=== PATIENT | female | born 1995 | race American Indian/Alaskan Native ===

== ENCOUNTER 2018-02-26 21:38 | Inpatient (IN) | payer BC ==
[2018-02-26 22:20] VITALS: BMI 28.8
--- NOTE | 2018-02-26 23:08 | ED PDOC ---
Arrival/HPI <Kyaw Conte - Last Filed: 02/26/18 23:46> - General Historian: Patient - History of Present Illness Narrative History of Present Illness (Text): 02/26/18 23:01 23yo female with history of depression who present to ED with complaint of suicidal attempt. States she has been depressed for a while. Her PMD gave her antidepressant, but she stopped taking it because it made her more suicidal. States she attempted to commit suicide today, by hanging her self but the rope broke. States she came to the ED herself to seek help. Admits using Marijuana 2days ago. Denies any somatic complaint. Denies HI and hallucination. <Mark Sharma A - Last Filed: 02/27/18 01:47> - General Chief Complaint: Psychiatric Evaluation Time Seen by Provider: 02/26/18 22:11 Past Medical History - Provider Review Nursing Documentation Reviewed: Yes - Past History Past History: No Previous - Infectious Disease Hx of Infectious Diseases: None - Tetanus Immunization Tetanus Immunization: Unknown - Cardiac Hx Cardiac Disorders: No - Pulmonary Hx Respiratory Disorders: No - Neurological Hx Neurological Disorder: No - HEENT Hx HEENT Disorder: No - Renal Hx Renal Disorder: No - Endocrine/Metabolic Hx Endocrine Disorders: No - Hematological/Oncological Hx Blood Disorders: No - Integumentary Hx Dermatological Disorder: No - Musculoskeletal/Rheumatological Hx Musculoskeletal Disorders: No - Gastrointestinal Hx Gastrointestinal Disorders: No - Genitourinary/Gynecological Hx Sexually Transmitted Diseases: Yes (genital herpes) - Psychiatric Hx Psychophysiologic Disorder: Yes Hx Anxiety: Yes Hx Bipolar Disorder: No Hx Depression: No Hx Emotional Abuse: No Hx Hallucinations: No Hx Panic Disorder: No Hx Post Traumatic Stress Disorder: No Hx Psychosis: No Hx Physical Abuse: No Hx Schizophrenia: No Hx Sexual Abuse: No Hx Substance Use: Yes (marijuana) - Past Surgical History Past Surgical History: Unable to Obtain - Anesthesia Hx Anesthesia: No Hx Anesthesia Reactions: No Hx Malignant Hyperthermia: No - Suicidal Assessment Feels Threatened In Home Enviroment: No <Mark Sharma A - Last Filed: 02/27/18 01:47> Family/Social History - Physician Review Nursing Documentation Reviewed: Yes Family/Social History: Unknown Family HX Smoking Status: Former Smoker Hx Alcohol Use: Yes Hx Substance Use: Yes (marijuana) Substance used: weed i week ago Hx Substance Use Treatment: No <Mark Sharma A - Last Filed: 02/27/18 01:47> Allergies/Home Meds <InésKyaw - Last Filed: 02/26/18 23:46> <Mark Sharma A - Last Filed: 02/27/18 01:47> Allergies/Adverse Reactions: Allergies No Known Allergies Allergy (Verified 02/26/18 22:18) Home Medications: Home Meds Medication Instructions Recorded Confirmed No Known Home Med 02/26/18 02/26/18 Review of Systems - Physician Review All systems were reviewed & negative as marked: Yes - Review of Systems Constitutional: Normal Eyes: Normal ENT: Normal Respiratory: Normal Cardiovascular: Normal Gastrointestinal: Normal Genitourinary Female: Normal Musculoskeletal: Normal Skin: Normal Neurological: Normal Endocrine: Normal Hemo/Lymphatic: Normal Psychiatric: Suicidal Ideation <Mark Sharma A - Last Filed: 02/27/18 01:47> Physical Exam Vital Signs Reviewed: Yes Temperature: Afebrile Blood Pressure: Normal Pulse: Regular Respiratory Rate: Normal Appearance: Positive for: Well-Appearing, Non-Toxic, Comfortable Pain Distress: None Mental Status: Positive for: Alert and Oriented X 3 - Systems Exam Head: Present: Atraumatic, Normocephalic Pupils: Present: PERRL Extroacular Muscles: Present: EOMI Conjunctiva: Present: Normal Mouth: Present: Moist Mucous Membranes Neck: Present: Normal Range of Motion Respiratory/Chest: Present: Clear to Auscultation, Good Air Exchange. No: Respiratory Distress, Accessory Muscle Use Cardiovascular: Present: Regular Rate and Rhythm, Normal S1, S2. No: Murmurs Abdomen: No: Tenderness, Distention, Peritoneal Signs Back: Present: Normal Inspection Upper Extremity: Present: Normal Inspection. No: Cyanosis, Edema Lower Extremity: Present: Normal Inspection. No: Edema Neurological: Present: GCS=15, CN II-XII Intact, Speech Normal Skin: Present: Warm, Dry, Normal Color. No: Rashes Psychiatric: Present: Alert, Oriented x 3, Normal Insight, Normal Concentration <Mark Sharma A - Last Filed: 02/27/18 01:47> Medical Decision Making - Lab Interpretations Lab Results: 02/26/18 22:57 02/26/18 22:57 Lab Results 02/26/18 22:57: Alcohol, Quantitative < 10 02/26/18 22:57: Salicylates < 1 L, Acetaminophen < 10.0 L 02/26/18 22:57: Sodium 139, Potassium 3.8, Chloride 106, Carbon Dioxide 26, Anion Gap 11, BUN 13, Creatinine 0.8, Est GFR ( Amer) > 60, Est GFR (Non- Af Amer) > 60, Random Glucose 87, Calcium 9.1, Magnesium 1.9, Total Bilirubin 0.2, AST 44 H, ALT 31, Alkaline Phosphatase 43, Total Protein 7.0, Albumin 4.2, Globulin 2.8, Albumin/Globulin Ratio 1.5 02/26/18 22:57: WBC 5.4 D, RBC 3.60, Hgb 11.5 L, Hct 34.0 L, MCV 94.4, MCH 31.9, MCHC 33.8, RDW 12.9, Plt Count 254, MPV 10.1, Gran % 59.2, Lymph % (Auto) 24.9, [place] % (Auto) 14.0 H, Eos % (Auto) 1.3 L, Baso % (Auto) 0.6, Gran # 3.17, Lymph # (Auto) 1.3, [place] # (Auto) 0.8 H, Eos # (Auto) 0.1, Baso # (Auto) 0.03 - RAD Interpretation Radiology Orders: 02/26/18 22:25 CHEST PORTABLE [RAD] Stat <Kyaw Conte - Last Filed: 02/26/18 23:46> ED Course and Treatment: 02/27/18 01:43 PT presented for stated history. Her lab was reviewed and unremarkable. UDS +THC. she was medically cleared for psychiatric evaluation CXR NAD Pt was seen in ED by CASSANDRA Cast. He DC with the psychiatrist and pt will be admitted to Dr. De La Cruz for MDD. - RAD Interpretation Radiology Orders: 02/26/18 22:25 CHEST PORTABLE [RAD] Stat <Mark Sharma - Last Filed: 02/27/18 01:47> - PA / AUTOMOBILE REPAIR SERVICE ESTIMATOR / Resident Statement SOPHIA has reviewed & agrees with the documentation as recorded. SOPHIA has examined the patient and agrees with the treatment plan. <Kyaw Conte - Last Filed: 02/26/18 23:46> Disposition/Present on Arrival <Kyaw Conte Last Filed: 02/26/18 23:46> - Present on Arrival Any Indicators Present on Arrival: No History of DVT/PE: No History of Uncontrolled Diabetes: No Urinary Catheter: No History of Decub. Ulcer: No History Surgical Site Infection Following: None - Disposition Have Diagnosis and Disposition been Completed?: Yes Disposition Time: 01:40 Patient Plan: Admission <Mark Sharma - Last Filed: 02/27/18 01:47> - Disposition Diagnosis: Major depressive disorder Disposition: HOSPITALIZED Patient Problems: Current Active Problems Problem Status Onset Major depressive disorder Acute Condition: STABLE Forms: [email or web address] (Sinhala)
[2018-02-26 23:25] LABS: BASO # 0.03 K/mm3 (0.0-2.0); BASO % 0.6 % (0.0-3.0); EOS # 0.1 (0.0-0.7); EOS % 1.3 % (1.5-5.0); GRAN # 3.17 (1.4-6.5); GRAN % 59.2 % (50.0-68.0); HEMOGLOBIN 11.5 g/dL (12.0-16.0); LYMPH # 1.3 (1.2-3.4); LYMPH % 24.9 % (22.0-35.0); MEAN CELL VOLUME 94.4 fl (80.0-105.0); MEAN CORPUSCULAR HEMOGLOBIN 31.9 pg (25.0-35.0); MEAN CORPUSCULAR HGB CONC 33.8 g/dl (31.0-37.0); MEAN PLATELET VOLUME 10.1 fl (7.0-11.0); MONO # 0.8 (0.1-0.6); RBC 3.6 10^6/uL (3.5-6.1); RED CELL DISTRIBUTION WIDTH 12.9 % (11.5-14.5); WHITE BLOOD COUNT 5.4 10^3/ul (4.5-11.0)
[2018-02-26 23:30] LABS: ACETAMINOPHEN < 10.0 ug/ml (10.0-20.0); SALICYLATE < 1 mg/dL (2.0-20.0)
[2018-02-26 23:31] LABS: ALB/GLOB RATIO 1.5 (1.1-1.8); ALBUMIN 4.2 g/dL (3.0-4.8); ALT/SGPT 31 U/L (7-56); AST/SGOT 44 U/L (14-36); BLOOD UREA NITROGEN 13 mg/dL (7-21); CALCIUM 9.1 mg/dL (8.4-10.5); GFR NON-AFRICAN AMERICAN > 60
[2018-02-26 23:48] LABS: PH,URINE 6.5 (4.7-8.0); URINE BILIRUBIN NEGATIVE (NEGATIVE); URINE BLOOD LARGE (NEGATIVE); URINE GLUCOSE (UA) NEGATIVE (NEGATIVE); URINE LEUKOCYTE ESTERASE NEGATIVE Leu/uL (NEGATIVE); URINE PROTEIN 30 mg/dL (<30 mg/dL); URINE UROBILINOGEN 0.2 E.U./dL (<1 E.U./dL)
[2018-02-26 23:56] LABS: URINE APPEARANCE SL CLOUDY (CLEAR); URINE COLOR YELLOW (YELLOW)
[2018-02-27 00:20] LABS: URINE BACTERIA OCC (NEG); URINE EPITHELIAL CELLS 0 - 2 /hpf (0-5); URINE WBC 0 - 2 /hpf (0-6)
[2018-02-27 00:32] LABS: BARBITURATES, UR NEGATIVE (NEGATIVE); BENZODIAZEPINES, UR NEGATIVE (NEGATIVE); OPIATES, UR NEGATIVE (NEGATIVE); PHENCYCLIDINE, UR NEGATIVE (NEGATIVE)
[2018-02-27 02:26] VITALS: O2SAT 100
[2018-02-27 04:39] VITALS: RESP 18
--- NOTE | 2018-02-27 05:22 | PCM.BM ---
<Danisha Hung - Last Filed: 02/27/18 05:19> Treatment Plan Problems - Problems identified on initial assessmt suicidal ideation Date Initiated: 02/27/18 Time Initiated: 05:00 Assessment reference: NA Status: Active ineffective coping Date Initiated: 02/27/18 Time Initiated: 05:00 Assessment reference: NA Status: Active <Dorothy Wright - Last Filed: 02/27/18 12:22> - Diagnosis (1) Major depressive disorder Status: Acute Interventions: 02/27/18 12:22 Psychoeducation Psychopharmacology/adjustment of medications as needed/ monitoring possible side effects Evaluate pt on daily basis Compliance with medications and follow up appointments Suicide and homicide risk assessment and prevention Relapse prevention Reduction of symptoms Improve functional status Family involvement As outpatient: cognitive behavioral therapy <Carol Palma - Last Filed: 02/28/18 16:13> Family Contact Family involvement: Family/SO is involved Family contact: Patient agrees to contact Family contact name: Sweta Schaeffer(sister) Family contacted how many times per week?: 2 <Nona Rucker - Last Filed: 02/28/18 16:51>
--- NOTE | 2018-02-27 10:33 | RAD ---
Date of service: 02/27/2018 HISTORY: admission COMPARISON: 04/01/2015 FINDINGS: LUNGS: No active pulmonary disease. PLEURA: No significant pleural effusion identified, no pneumothorax apparent. CARDIOVASCULAR: Normal. OSSEOUS STRUCTURES: No significant abnormalities. VISUALIZED UPPER ABDOMEN: Normal. OTHER FINDINGS: None. IMPRESSION: No active disease.
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
--- NOTE | 2018-02-28 01:09 | CON ---
DATE: 02/27/2018 REQUESTING PHYSICIAN: Dorothy Wright MD. CONSULTATION REASON: Medical management. HISTORY OF PRESENT ILLNESS: The patient's history is obtained through [facility], the patient's Psychiatry evaluation, ER evaluation and [facility] visits. The patient is a 23-year-old female which according to the patient's ER triage evaluation, the patient came to the emergency room ambulatory walk-in for psychiatric evaluation. The patient stated that she is feeling overwhelmed and having suicidal ideation. The patient attempted to hang herself, but the hook broke. REVIEW OF SYSTEMS: Thirteen-system review was positive for suicide attempts, suicidal ideation, depression, anxiety. The patient admits active alcohol use, marijuana use and smoking. The patient denies homicidal ideation. Denies auditory or visual hallucination. The patient admits to be anxious and depressed. CODE STATUS: Full code. LIVING WILL ADVANCE DIRECTIVE: None. ALLERGIES: NONE. HEIGHT: 5 feet 8. Weight is 180, height is 5 feet 8. The patient is a 23-year-old female. SOCIAL HISTORY: Positive for marijuana use. Positive for alcohol. Positive smoking. MENSTRUAL HISTORY: The patient denies being . The patient has history of genital herpes. PAST SURGICAL HISTORY: None. PAST MEDICAL, SURGICAL, PSYCHIATRIC, SOCIAL HISTORY: Positive for genital herpes, positive for anxiety, depression, positive for multiple emergency room evaluation for alcohol intoxication and fall and facial injuries. The patient had multiple ER visits since 2015 for above. Past medical history is also significant for alcohol intoxication, history of abdominal pain, history of unprotected sex. Past medical history is also significant for history of fall secondary to alcohol intoxication, history of poor compliance, history of questionable tension headache, history of facial and right jaw injury in 2016, history of mandibular joint area contusion, history of multiple ER visits in 2015 and 2016, history of poor compliance, history of suicidal ideation, history of being treated with antidepressant in the past, history of alcohol abuse, history of marijuana use. The patient is admitted to Psychiatry floor, room 515. FAMILY HISTORY: Positive for schizophrenia in sister. Positive for alcoholism in the father. The patient's father is an alcohol abuser and family history is positive for alcohol abuse. The patient's 13-system review as above. PHYSICAL EXAMINATION: VITAL SIGNS: T-max 98.2; pulse 78-81; blood pressure 148/70, 138/70; respirations 16-17; O2 sat 100%. GENERAL: The patient is a female. HEENT: Head examination normocephalic, atraumatic. HEENT examination shows pinkish pale conjunctivae. Anicteric sclerae. No nystagmus noted. No oropharyngeal lesion. No neck rigidity. CHEST: Clear to auscultation. No rales, crackles or wheezing. CARDIOVASCULAR: S1, S2. Regular rhythm. No audible murmur, gallop or rub. ABDOMEN: Soft. Positive bowel sound. No tenderness. No distention. No guarding. No rigidity. SPINE: Normal. EXTREMITIES: No pitting edema, no calf tenderness, no Homans' sign. No cyanosis. NEUROLOGIC: The patient has cranial nerves II through XII intact. Speech is within normal limit. SKIN: Warm and dry. PSYCHIATRIC: The patient is alert, awake, oriented x3. No deficits noted. The patient's affect is constricted. The patient's mood is depressed and anxious. DIAGNOSTICS: CBC shows a hemoglobin of 11.5 and hematocrit 34. Chemistry shows AST 44, urine protein 30, large blood, occasional bacteria. Salicylates negative. Opiates negative. Methadone negative. Acetaminophen negative. Urine drug screen positive for cannabinoids. Alcohol level negative. Chest x-ray was done in the emergency room. No active disease. The patient was seen and evaluated in the emergency room last night. The patient was then evaluated by the PES. The patient was admitted to Psychiatry for further management. IMPRESSION AND PLAN: 1. Suicidal ideation. 2. Possible suicidal attempt. 3. Possible major depression with adjustment disorder versus generalized anxiety disorder versus panic disorder. 4. Alcohol and marijuana and cannabinoids abuse and dependence. 5. Mild normocytic anemia. 6. Trace proteinuria, microscopic hematuria, bacteriuria. 7. Urine drug screen positive for marijuana. 8. History of alcohol and marijuana abuse. 9. Anxiety, depression, suicidal ideation. 10. History of genital herpes and sexually transmitted disease. 11. Questionable panic disorder. 12. Family history of alcohol abuse. 13. Family history of schizophrenia. Plan at this time, the patient is admitted to Psychiatry. The patient is started on Prozac 10 mg daily, Remeron 15 at bedtime p.r.n., Vistaril p.r.n. The patient is on Ativan 2 mg p.o. every 6 hours and Ativan 2 mg IM every 6 hours p.r.n., Geodon 20 mg p.o. or IM every 6 hours p.r.n., Prozac 10 mg daily, Remeron 15 mg at bedtime p.r.n., Vistaril 25 mg every 8 p.r.n. Regular diet ordered. In addition the patient has been ordered EKG and echo because the patient also gives history of palpitations. The patient's thyroid panel will be ordered. Holter monitor if feasible will be ordered. Thyroid panel, RPR, B12, folate, vitamin D 25-hydroxy, lipid panel, urine culture will be ordered. At present, the patient is to be continued on above therapeutic interventions. The patient's further management will be dependent upon the patient's clinical condition, hemodynamic status and as per the patient's response to therapeutic intervention, the patient's diagnostic test results and as per recommendation by all the physicians involved in the care of the patient. In addition, the patient has been ordered hepatitis panel, HIV. The patient's herpes HSV 1 and 2 will be ordered because the patient has history of herpes simplex. The patient's Chlamydia, gonorrhea will be ordered. At present, the patient will be continued on the all above until further management. The patient's estimated length of stay as per the Psychiatry is 7 days. The patient will be followed from Medical Service. The patient's diagnostic data will be reviewed when available. Dictated and electronically signed, not read. Lb Morgan MD
[2018-02-28 08:17] LABS: HDL CHOLESTEROL 54 mg/dL (29-60)
[2018-02-28 08:28] LABS: LDL CHOLESTEROL 69 mg/dL (0-129)
[2018-02-28 08:37] LABS: FREE T4 0.85 ng/dL (0.78-2.19)
[2018-02-28 08:39] LABS: T4 6.2 ug/dL (5.5-11.0)
--- NOTE | 2018-02-28 09:51 | CARD ---
APPROVED REPORT Date of service: 02/28/2018 EKG Measurement Heart [id number] <Conclusion> Normal sinus rhythm Normal ECG
--- NOTE | 2018-02-28 15:16 | CARD ---
APPROVED REPORT Date of service: 02/28/2018 EKG Measurement Heart [id number] <Conclusion> Normal sinus rhythm Normal ECG
[2018-02-28 16:19] LABS: HEPATITIS B SURFACE AG Negative (NEGATIVE)
[2018-02-28 16:25] LABS: HEPATITIS A IGM NEGATIVE (NEGATIVE); HEPATITIS B CORE AB NEGATIVE (NEGATIVE)
[2018-02-28 16:36] LABS: HEPATITIS C ANTIBODY NEGATIVE (NEGATIVE)
[2018-02-28 16:53] LABS: FOLATE 16.2 ng/mL
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
[2018-03-01 07:20] VITALS: BP 102/67; PULSE 67; TEMP 97.7
[2018-03-01] MEDS ORDERED: Ergocalciferol 50,000 Intl Units Cap PO SCH (10:00)
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
--- NOTE | 2018-03-02 13:07 | CARD ---
APPROVED REPORT Date of service: 03/01/2018 EXAM: Two-dimensional and M-mode echocardiogram with Doppler and color Doppler. INDICATION Palpitations 2D DIMENSIONS Left Atrium (2D)3.6 (1.6-4.0cm)IVSd1.0 (0.7-1.1cm) LVDd4.8 (3.9-5.9cm)PWd1.2 (0.7-1.1cm) LVDs3.6 (2.5-4.0cm)FS (%) 25.6 % LVEF (%)50.6 (>50%) M-Mode DIMENSIONS Aortic Root2.40 (2.2-3.7cm)Aortic Cusp Exc.1.60 (1.5-2.0cm) Aortic Valve AoV Peak Qkwpozvw151.0cm/Rey Peak GR.5mmHg Mitral Valve MV E Foqraumm33.7cm/sMV A Bpxgfpho70.0cm/sE/A ratio1.5 TDI E/Lateral E'0.0E/Medial E'0.0 Tricuspid Valve TR Peak Lpljzthn375ok/sRAP [id number] Peak Gr.19mmHg [id number] LEFT VENTRICLE The left ventricle is normal size. LV Posterior Wall Shows Mild Hypertrophy. The left ventricular function is normal. The left ventricular ejection fraction is within the normal range.Ej.Fr: 50-55%. RIGHT VENTRICLE The right ventricle is normal size. The right ventricular systolic function is normal. ATRIA The left atrium size is normal. The right atrium size is normal. AORTIC VALVE Aortic Valve Leaflets thickened. Opening is Normal. MITRAL VALVE Mitral Valve Leaflets Thickened. Opening Normal. Mitral regurgitation is trace. TRICUSPID VALVE The tricuspid valve is normal in structure. There is trace tricuspid regurgitation.RVSP 29mm Hg. PERICARDIAL EFFUSION There is no pericardial effusion. <Conclusion> LV Size Normal. The left ventricular function is normal. LV Posterior Wall Shows Mild Hypertrophy. The left ventricular ejection fraction is within the normal range.Ej.Fr: 50-55%. The right ventricle is normal size. The right ventricular systolic function is normal. The left atrium size is normal. The right atrium size is normal. Aortic Valve Leaflets thickened. Opening is Normal. Mitral Valve Leaflets Thickened. Opening Normal. Mitral regurgitation is trace. The tricuspid valve is normal in structure. There is trace tricuspid regurgitation.RVSP 29mm Hg. There is no pericardial effusion.
[2018-03-02 19:14] LABS: C. PNEUMONIAE IGA <1:16 (<1:16); C. PNEUMONIAE IGG <1:64 (<1:64); C. PNEUMONIAE IGM <1:10 (<1:10); C. PSITTACI IGA <1:16 (<1:16); C. PSITTACI IGG <1:64 (<1:64); C. PSITTACI IGM <1:10 (<1:10)
== END 2018-03-01 12:15 | disposition left against medical advice (07) | DRG 882 ==
LOC: ED 21:38 → ERH 02-27 01:42 → PSYC 02-27 02:30
PROVIDERS: ADMIT Psychiatry & Neurology Psychiatry; ATTEND Psychiatry & Neurology Psychiatry
DX: F43.23 Adjustment disorder with mixed anxiety and depressed mood (principal); R45.851 Suicidal ideations; N39.0 Urinary tract infection, site not specified; F32.9 Major depressive disorder, single episode, unspecified; A60.00 Herpesviral infection of urogenital system, unspecified; F12.10 Cannabis abuse, uncomplicated; D64.9 Anemia, unspecified; E55.9 Vitamin D deficiency, unspecified; R31.29 Other microscopic hematuria; Z87.891 Personal history of nicotine dependence; Z91.410 Personal history of adult physical and sexual abuse; Z91.411 Personal history of adult psychological abuse; Z81.8 Family history of other mental and behavioral disorders; Z81.1 Family history of alcohol abuse and dependence